=== PATIENT | female | born 1985 | race Caucasian/White ===

== ENCOUNTER 2016-12-02 15:02 | Emergency (ER) | payer OTHER ==
--- NOTE | ~2016-12-02 | CR279 ---
[facility] A Service of [facility] & [facility] RADIOLOGY TEXT RESULTS PATIENT: LAMONT HERNANDEZ LOCATION: CFTX : 83 UNIT #: [id number] AGE: [address]: Dina Man SEX: F ORDER DR: [id number] [facility] [address] [place], [place] [address] [id number] E MR#: [id number] Acc #: [id number] NAME: LAMONT HERNANDEZ : 1985 SEX: F STUDY DATE/TIME: 12/02/2016 14:47 UNIT: [facility] ROOM: STUDY DESCRIPTION: CR Wrist 2 View Rt Attending Physician: Dina Man P.A.-C. Ordering Physician: Dina Man P.A.-C. Primary Care Physician: No Primary Care Physician MEDICAL IMAGING REPORT This report is preliminary unless electronic signature is present EXAM Right wrist 12/02/2016 HISTORY 31-year-old female in the ED complaining of right wrist pain after injury earlier today. Fell off a fence. 2 limited lateral radiographs of the right wrist were obtained. No AP image is provided. FINDINGS Markedly comminuted fracture of the distal radius with moderate dorsal displacement and angulation. No definite ulnar fracture. Postop changes previous scaphoid fusion surgery with hardware in place. IMPRESSION Displaced and dorsally angulated comminuted intraarticular fracture of the distal radius. Dictated by... Robert Sotelo M.D. THIS IS AN ELECTRONICALLY VERIFIED REPORT Robert Sotelo M.D. at 12/03/2016 6:27 AM Michael TD: 12/02/2016 18:30 JOB #: [id number] MEDICAL IMAGING REPORT COPY
--- NOTE | ~2016-12-02 | CR279 ---
[facility] A Service of [facility] & [facility] RADIOLOGY TEXT RESULTS PATIENT: LAMONT HERNANDEZ LOCATION: CFTX : 83 UNIT #: [id number] AGE: [address]: Dina Man SEX: F ORDER DR: [id number] [facility] [address] [place], [place] [address] [id number] E MR#: [id number] Acc #: [id number] NAME: LAMONT HERNANDEZ : 1985 SEX: F STUDY DATE/TIME: 12/02/2016 17:32 UNIT: TX ROOM: STUDY DESCRIPTION: CR Wrist 2 View Rt Attending Physician: Dina Man P.A.-C. Ordering Physician: Dina Man P.A.-C. Primary Care Physician: Primary Care Physician No MEDICAL IMAGING REPORT This report is preliminary unless electronic signature is present EXAM Right wrist, 2 views, 12/02/2016 HISTORY Wrist fracture, postreduction. Fell today. FINDINGS Compared to earlier today the displaced distal radial fracture has been reduced. The comminuted transverse fracture of the distal radial metaphysis is again demonstrated extending into the distal radioulnar joint. There is approximately 3 mm separation of the dominant fracture fragments and very minimal residual posterior angulation of the distal radial fracture fragment measuring close to 5 degrees. Internal fixation of the scaphoid. Bone detail is partly limited by overlying cast. Dictated by... Khoa Brasher M.D. THIS IS AN ELECTRONICALLY VERIFIED REPORT Khoa Brasher M.D. at 12/03/2016 2:18 PM DFL/wiliam TD: 12/03/2016 01:40 JOB #: [id number] MEDICAL IMAGING REPORT COPY
== END 2016-12-02 18:20 | disposition home or self-care (01) ==
LOC: CFTX 15:02
DX: S52.501A Unspecified fracture of the lower end of right radius, initial encounter for closed fracture (principal); F17.210 Nicotine dependence, cigarettes, uncomplicated; W18.30XA Fall on same level, unspecified, initial encounter; Y92.830 Public park as the place of occurrence of the external cause
CPT/HCPCS: 29125; 73100; 90715; 96372; 99283; J1170; J1885